=== PATIENT | female | born 1995 | race Caucasian/White ===

== ENCOUNTER 2021-03-15 08:13 | Emergency (ER) | payer OTHER ==
[2021-03-15] MEDS ORDERED: SILVADENE20 G1 TOP (08:55)
== END 2021-03-15 09:32 | disposition home or self-care (01) ==
LOC: FER 08:13
DX: T25.221A Burn of second degree of right foot, initial encounter (principal); Z23 Encounter for immunization; X10.2XXA Contact with fats and cooking oils, initial encounter; Y92.89 Other specified places as the place of occurrence of the external cause; Y99.0 Civilian activity done for income or pay
CPT/HCPCS: 90471; 90715

== ENCOUNTER 2021-09-25 11:16 | Emergency (ER) | payer OTHER ==
[~2021-09-25 11:16] MED LIST: SILVADENE20 G1 TOP
[2021-09-25 14:05] LABS: BILIRUBIN NEGATIVE (NEGATIVE); BLOOD NEGATIVE Ery/uL (NEGATIVE); CLARITY HAZY (CLEAR); COLOR YELLOW (YELLOW); GLUCOSE (U) NORMAL (NORMAL); LEUKOCYTES 1+ Leu/uL (NEGATIVE); NITRITE NEGATIVE (NEGATIVE); PROTEIN NEGATIVE (NEGATIVE); SPECIFIC GRAVITY 1.025 (1.001-1.030); UROBILINOGEN 0.2 mg/dL (0.2-1.0)
[2021-09-25 14:06] LABS: BASOPHIL 0.7 % (0-2); EOSINOPHIL 0.4 % (0-5); HCT 45.2 % (37.0-47.0); HGB 14.9 g/dl (12.5-16.0); LYMPHOCYTE 31.4 % (15-48); MCV 94.2 fL (78.0-100.0); MONOCYTE 5.1 % (0-12); MPV 11.7 fL (6.0-9.5); NEUTROPHIL 62.1 % (41-80); NRBC 0; PLT 251 K/uL (150-400); RDW 12.7 % (11.5-14.0); WBC 7.2 K/uL (4.0-10.5)
[2021-09-25 14:14] LABS: ALBUMIN 3.5 g/dL (3.4-5.0); BILIRUBIN - TOTAL 0.3 mg/dL (0.2-1.0); CREATININE 0.6 mg/dL (0.51-0.95); GLOBULIN (CALCULATION) 3.4 g/dL; POTASSIUM 3.9 mmol/L (3.5-5.1); TOTAL PROTEIN 6.9 g/dL (6.4-8.2)
[2021-09-25 14:30] LABS: BACTERIA 1+
[2021-09-25] MEDS ORDERED: MACROBID100 MG PO (14:34)
== END 2021-09-25 15:05 | disposition home or self-care (01) ==
LOC: FER 11:16
PROVIDERS: Physician Assistant
DX: N39.0 Urinary tract infection, site not specified (principal); Z28.310 Unvaccinated for COVID-19
CPT/HCPCS: 36415; 80053; 81001; 83690; 85025; 99284